=== PATIENT | male | born 1950 | race Caucasian/White ===

== ENCOUNTER 2021-06-21 14:08 | Inpatient (IN) | payer OTHER ==
[2021-06-21] VITALS (23 sets, daily range): BP systolic 132–183; BP diastolic 80–120
[~2021-06-21] VITALS: Ht 177.8 cm; Wt 99.8 kg
--- NOTE | 2021-06-21 14:19 | PCM.EKG ---
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
--- NOTE | 2021-06-21 14:23 | ER.PDOC ---
General Chief Complaint: Requesting Medical Care Stated Complaint: CP Time seen by MD: 14:31 Source: patient, family Exam Limitations: no limitations History of Present Illness Initial Comments 70-year-old male with previous history of only leukemia presents for evaluation of right-sided chest pressure. States the pressure feels as though something is sitting on his chest. He was exerting himself moving a house and cleaning it out when this chest pain occurred. He describes it as moderate in nature. There is no radiation. During the initial event he had diaphoresis that developed. Which is since resolved. He still has similar rated pain. He has never had a heart attack before. He denies any history of hypertension, no history of high blood pressure, high cholesterol or diabetes. No strong family history of cardiac disease. Exertion seems to make the pain worse. Rest seems to make it better. Timing/Duration: 1 hour Severity/Quality: moderate Radiation: no radiation Activities at Onset: activity/exertion Prior CP/Workup: No Prior Chest Pain, No Prior Cardiac Workup Nitro Today/Relief: No Nitro Taken Today Aspirin Today: No Aspirin Today Associated Symptoms: diaphoresis Prior symptoms/Treatment: No Similar symptoms previous Allergies: Coded Allergies: No Known Allergies (Unverified , 06/21/21) Past Medical History Medical History: other (Leukemia) Surgical History: no surgical history Family History Significant Family History: no pertinent family hx Social History Smoking: non-smoker Alcohol Use: rarely Drug Use: none Reviewed Nursing Reviewed: Vital Signs, Abn. Noted, Nursing Assessment Constitutional: see HPI EENTM: no symptoms reported Respiratory: see HPI Cardiovascular: see HPI Gastrointestinal: see HPI Genitourinary: no symptoms reported Musculoskeletal: no symptoms reported Skin: see HPI Psychiatric/Neurological: no symptoms reported Endocrine: no symptoms reported Hematologic/Lymphatic: no symptoms reported All Other Systems: Reviewed and Negative Physical Exam General Appearance: No Apparent Distress, WD/WN HEENT: PERRL/EOMI, Normal ENT Inspection Neck: Non-Tender, Full Range of Motion Respiratory: chest non-tender, lungs clear, normal breath sounds, no respiratory distress, no accessory muscle use Cardiovascular: Normal Peripheral Pulses, Regular Rate, Rhythm, No Edema Gastrointestinal: Normal Bowel Sounds, No Organomegaly Extremities: Normal Range of Motion, Non-Tender Neurologic/Psychiatric: 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 (06/21/21 14:15) Xr Chest 1v (06/21/21 14:15) Ekg-Routine (06/21/21 14:15) Aspirin (Aspirin) (06/21/21 14:30) Nitroglycerin (Nitrostat) (06/21/21 14:34) Aspirin (Aspirin) (06/21/21 14:34) Ekg-Routine (06/21/21 14:34) Nitroglycerin (Nitrostat) (06/21/21 14:34) Vital Signs Date Time Temp Pulse Resp B/P (MAP) Pulse Ox O2 Delivery O2 Flow Rate FiO2 06/21/21 14:38 98.3 70 18 183/120 (141) 99 Room Air 06/21/21 14:27 98.3 70 18 06/21/21 14:27 98.3 70 18 99 Administered Medications Medications (Trade) Dose Ordered Sig/Marielos Route PRN Reason Start Time Stop Time Status Last Admin Dose Admin Aspirin (Aspirin) 325 mg DAILY PRN PO CHEST PAIN 06/21/21 14:30 07/21/21 14:29 06/21/21 14:37 325 MG Nitroglycerin (Nitrostat) 0.4 mg STAT STAT SL 06/21/21 14:34 06/21/21 14:37 DC 06/21/21 14:38 0.4 MG Laboratory Tests Test 06/21/21 14:23 White Blood Count 7.5 10^3/uL (4.5-11.0) Red Blood Count 4.62 10^6/uL (4.50-5.90) Hemoglobin 15.1 g/dL (13.9-16.3) Hematocrit 43.2 % (37.0-53.0) Mean Corpuscular Volume 93.5 fL (78-100) Mean Corpuscular Hemoglobin 32.7 pg (26-34) Mean Corpuscular Hemoglobin Concent 35.0 g/dL (33-36.5) Red Cell Distribution Width 13.4 % (11.5-14.5) Platelet Count 186 10^3/uL (150-400) Mean Platelet Volume 8.8 fL (7.8-11.0) Neutrophils (%) (Auto) 78.0 % (41.0-85.0) Lymphocytes (%) (Auto) 14.8 % (24.0-44.0) L Monocytes (%) (Auto) 4.9 % (5.0-12.0) L Neutrophils # (Auto) 5.8 10^3/uL (1.8-7.7) Lymphocytes # (Auto) 1.11 10^3/uL1 (1.0-4.8) Monocytes # (Auto) 0.4 10^3/uL (0.3-0.8) Absolute Immature Granulocyte (auto 0.01 10^3 u/L (0-2) Absolute Eosinophils (auto) 0.1 10^3/uL (0.0-0.2) Immature Granulocytes % 0.10 % (0.00-0.50) Eosinophils % 1.7 % (0.0-5.0) Basophils % 0.5 % (0.0-0.2) H Basophils # 0.0 10^3/uL (0.0-0.1) Prothrombin Time 11.3 SEC (9.6-12.0) Prothrombin Time INR (Non-Therap) 1.1 Activated Partial Thromboplast Time 23.0 SEC (24.67-30.72) Sodium Level 139 mmol/L (132-145) Potassium Level 3.6 mmol/L (3.6-5.2) Chloride Level 106.0 mmol/L (96-109) Carbon Dioxide Level 25.1 mmol/L (20.0-32) Anion Gap 11.5 Blood Urea Nitrogen 14 mg/dL (7-18) Creatinine 1.25 mg/dL (0.59-1.40) Estimated GFR () 69.3 (>/=60) Est GFR (CKD-EPI)(Non-Afr Moroccan) 57.3 (>/=60) BUN/Creatinine Ratio 11.0 Glucose Level 128 mg/dL (70-110) H Calcium Level 9.0 mg/dL (8.4-10.5) Total Bilirubin 0.4 mg/dL (0.2-1.0) Aspartate Amino Transferase (AST) 31 U/L (0-35) Alanine Aminotransferase (ALT) 32 U/L (12-78) Alkaline Phosphatase 60 U/L (50-136) Troponin I 0.43 ng/mL (0.00-0.05) H Total Protein 7.5 g/dL (6.4-8.2) Albumin 4.1 g/dL (3.4-5.0) Globulin 3.4 Albumin/Globulin Ratio 1.205 EKG/XRAY/CT/US EKG: NSR, nonspecific ST T wave chg EKG Comments: NSR at 69, No ST Elevation, NO STEMI Consult/PCP Time Consult/PCP Called: 15:21 Consult/PCP: Gabriela Reason/Comments: NSTEMI/Chest pain. Recommends heparin drip, admission to hospital service. #2 EKG: NSR, nonspecific ST T wave chg ER DEPART Departure Time of Disposition: 15:23 Disposition: 09 ADMITTED INPATIENT Impression: Primary Impression: Chest pain Additional Impressions: Elevated troponin Acute coronary syndrome with high troponin Condition: Improved Referrals: PCP,UNKNOWN (PCP) PRIMARY CARE PROVIDER Duration or Time Spent with Pa: 20 Critical Care Note Total Time (mins): 35 Comments Chest pain, concerning initially for possible acute infarction. Multiple serial EKGs obtained. Consulted with cardiology. Initiated patient on heparin drip. Admitted for ACS. Problem Qualifiers Primary Impression: Chest pain Chest pain type: other chest pain Qualified Codes: R07.89 - Other chest pain MARCELA FIELD DO Jun 21, 2021 14:23
[2021-06-21] MEDS ORDERED: ASPIRIN PO PRN (14:30)
[2021-06-21 14:32] LABS: BASOPHIL % 0.5 % (0.0-0.2); EOSINOPHIL # 0.1 10^3/uL (0.0-0.2); EOSINOPHIL % 1.7 % (0.0-5.0); LYMPHOCYTES # 1.11 10^3/uL1 (1.0-4.8); LYMPHOCYTES % 14.8 % (24.0-44.0); MEAN CORP HGB 32.7 pg (26-34); MONOCYTES # 0.4 10^3/uL (0.3-0.8); MONOCYTES % 4.9 % (5.0-12.0); NEUTROPHIL # 5.8 10^3/uL (1.8-7.7); PLATELET COUNT 186 10^3/uL (150-400); RED CELL DISTRIBUTION WIDTH 13.4 % (11.5-14.5)
[2021-06-21] MEDS ORDERED: ASPIRIN ONE (14:34)
[2021-06-21] MEDS ORDERED: NITROSTAT SL ONE (14:34)
[2021-06-21] MEDS ORDERED: NITROSTAT SL STA (14:34)
--- NOTE | 2021-06-21 14:37 | DIREP ---
PROCEDURE:CHEST 1 VIEW COMPARISON:None. INDICATIONS:Chest pain FINDINGS: LUNGS/PLEURA:Or active projection. No infiltrate or pleural effusion. CARDIAC:Normal cardiac silhouette and normal pulmonary vascularity. Mildly tortuous aorta. MEDIASTINUM:Normal BONES:Thoracic spondylosis and bilateral shoulder arthrosis. OTHER:No additional findings. CONCLUSION:No acute cardiopulmonary process. Dictated by: Deepika Biggs MD on 06/21/2021 at 02:34 PM
--- NOTE | 2021-06-21 14:44 | PCM.EKG ---
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
[2021-06-21 15:08] LABS: CARBON DIOXIDE 25.1 mmol/L (20.0-32)
[2021-06-21] MEDS ORDERED: HEPARIN-D5W 20,000 UNIT/500 ML 500 ML IV SCH (15:30)
[2021-06-21] MEDS ORDERED: HEPARIN-D5W 20,000 UNIT/500 ML 500 ML IV ONE (15:33)
[2021-06-21] MEDS ORDERED: HEPARIN ONE ×2 (15:33→22:49)
[2021-06-21] MEDS ORDERED: HEPARIN 500 UNIT/5 ML (100/ML) IV STA (15:44)
--- NOTE | 2021-06-21 17:00 | NUR ---
Arrival Patient arrived on unit via stretcher to ICU 1. Report received from Rehan RN, Assumed care of pt. Pt placed on bedside monitor. Vital signs WNL. Oriented pt to room. Offered pt fluids and snacks. Educated pt on use of call light, pt verbalized understanding. Will continue to monitor. Call light within reach.
--- NOTE | 2021-06-21 17:20 | NUR ---
Dr. Bentley Hagan at bedside. New orders received for troponin q4hr x2, first one at 1800, order to place midline, and continue folic acid and vitamin d from home medications. RBVO.
[2021-06-21] MEDS ORDERED: TOPROL XL PO SCH (17:30)
[2021-06-21] MEDS ORDERED: PLAVIX PO SCH (17:30)
--- NOTE | 2021-06-21 17:42 | PCM.HP ---
HISTORY & PHYSICAL HISTORY & PHYSICAL DATE OF ADMISSION: June 21, 2021 CHIEF COMPLAINT: Chest pressure For last 4 to 5 hours HISTORY OF PRESENT ILLNESS: XT 10-year-old male with previous history of rheumatoid arthritis large granulocyte lymphocytic leukemia denies any history of hypertension diabetes mellitus or hypercholesterolemia was moving his parents house furniture's and suddenly developed mid chest pressure-like symptoms denies any associated nausea or vomiting dizziness lightheadedness or palpitation as the symptom was disturbing he decided to come to the ER in the ER patient was found to have elevated troponin and ST depression.According to the ER physician has contacted Dr. Talat ALLEN and recommended ICU admission with heparin drip and patient was admitted for further management patient claims that he is still have chest discomfort and no cough wheezing or shortness of breath no trauma to the chest no wheezing no frequent heartburn ALLERGIES: No known drug allergies CURRENT MEDICATIONS: Not available at this time PAST MEDICAL HISTORY: Rheumatoid arthritis large granulocyte Lymphocytic leukemia Past surgical history is significant for prostate cancer surgery appendectomy and skin cancer removal SOCIAL HISTORY: Stop smoking more than 10 years prior to this admission has history of 20 pack years smoking no alcohol intake,Living with his spouse FAMILY HISTORY: No history of first-degree relative with premature heart disease REVIEW OF SYSTEMS: No change in weight tolerating p.o. intake well chest pressure still present no fever chills or rigors no cough or wheezing occasional heartburn regular bowel movement no melena or hematochezia no dysuria hematuria or increased frequency of urination no dependent edema All systems reviewed and negative except mentioned above VITAL SIGNS: Vital Signs Date Time Temp Pulse Resp B/P (MAP) Pulse Ox O2 Delivery O2 Flow Rate FiO2 06/21/21 15:37 98.3 72 18 140/95 (110) 96 Room Air 06/21/21 14:38 98.3 70 18 183/120 (141) 99 Room Air 06/21/21 14:27 98.3 70 18 06/21/21 14:27 98.3 70 18 99 PHYSICAL EXAMINATION: General: Patient is awake alert oriented not in distress HEENT: Anicteric sclera pupil react light mucous membrane is moist neck supple no JVD no carotid bruit no cervical lymphadenopathy no thyromegaly Lungs air entry symmetrical clear to auscultation bilaterally Heart S1-S2 heard no murmur or gallop appreciated,Clinically not enlarged Abdomen old surgical scar present subumbilical region slightly obese nontender bowel sounds present soft no guarding no rigidity Extremities no edema no calf tenderness dorsalis pedis pulses present bilaterally 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 SPECIALIST alert oriented no focal deficit noted,Normal mood and judgment LABORATORY DATA: Laboratory Tests Test 06/21/21 14:23 White Blood Count 7.5 10^3/uL (4.5-11.0) Red Blood Count 4.62 10^6/uL (4.50-5.90) Hemoglobin 15.1 g/dL (13.9-16.3) Hematocrit 43.2 % (37.0-53.0) Mean Corpuscular Volume 93.5 fL (78-100) Mean Corpuscular Hemoglobin 32.7 pg (26-34) Mean Corpuscular Hemoglobin Concent 35.0 g/dL (33-36.5) Red Cell Distribution Width 13.4 % (11.5-14.5) Platelet Count 186 10^3/uL (150-400) Mean Platelet Volume 8.8 fL (7.8-11.0) Neutrophils (%) (Auto) 78.0 % (41.0-85.0) Lymphocytes (%) (Auto) 14.8 % (24.0-44.0) Monocytes (%) (Auto) 4.9 % (5.0-12.0) Neutrophils # (Auto) 5.8 10^3/uL (1.8-7.7) Lymphocytes # (Auto) 1.11 10^3/uL1 (1.0-4.8) Monocytes # (Auto) 0.4 10^3/uL (0.3-0.8) Absolute Immature Granulocyte (auto 0.01 10^3 u/L (0-2) Absolute Eosinophils (auto) 0.1 10^3/uL (0.0-0.2) Immature Granulocytes % 0.10 % (0.00-0.50) Eosinophils % 1.7 % (0.0-5.0) Basophils % 0.5 % (0.0-0.2) Basophils # 0.0 10^3/uL (0.0-0.1) Prothrombin Time 11.3 SEC (9.6-12.0) Prothrombin Time INR (Non-Therap) 1.1 Activated Partial Thromboplast Time 23.0 SEC (24.67-30.72) Sodium Level 139 mmol/L (132-145) Potassium Level 3.6 mmol/L (3.6-5.2) Chloride Level 106.0 mmol/L (96-109) Carbon Dioxide Level 25.1 mmol/L (20.0-32) Anion Gap 11.5 Blood Urea Nitrogen 14 mg/dL (7-18) Creatinine 1.25 mg/dL (0.59-1.40) Estimated GFR () 69.3 (>/=60) Est GFR (CKD-EPI)(Non-Afr Bahraini) 57.3 (>/=60) BUN/Creatinine Ratio 11.0 Glucose Level 128 mg/dL (70-110) Calcium Level 9.0 mg/dL (8.4-10.5) Total Bilirubin 0.4 mg/dL (0.2-1.0) Aspartate Amino Transf (AST/SGOT) 31 U/L (0-35) Alanine Aminotransferase (ALT/SGPT) 32 U/L (12-78) Alkaline Phosphatase 60 U/L (50-136) Troponin I 0.43 ng/mL (0.00-0.05) Total Protein 7.5 g/dL (6.4-8.2) Albumin 4.1 g/dL (3.4-5.0) Globulin 3.4 Albumin/Globulin Ratio 1.205 IMAGING: SUMMARY: 70-year-old male with previous history of rheumatoid arthritis presented to the ER with chest discomfort found to have abnormal EKG and elevated troponin patient was started on aspirin and heparin drip as per import/export analyst recommendation and admitted to ICU ASSESSMENT/PLAN: 1. Acute non-STEMI 2. History of rheumatoid arthritis 3. History of prostate cancer 4. History of Leukemia Plan: We will add Plavix and low-dose beta-alissa and statins await import/export analyst recommendation reevaluate the patient in a.m. SHAZIA CLIFFORD MD Jun 21, 2021 17:42
--- NOTE | 2021-06-21 20:45 | NUR ---
HEPARIN DRIP HEPARIN DRIP INCREASED BY 100 UNITS TO A FLOW RATE OF 1100 UNITS DUE TO PTT OF 43.8.
[2021-06-21] MEDS ORDERED: CRESTOR PO SCH (21:00)
--- NOTE | 2021-06-21 22:45 | NUR ---
OFF UNIT SURGICAL CHECKLIST AND SBAR REPORT GIVEN TO CLINTON LUTHER RN FROM [facility]MET[facility]MI[facility]. PT TRANSFERRED TO [facility] BED. PT WHEELED OFF OF UNIT BY CLINTON LUTHER RN FROM [facility]MET[facility]. CARE OF PT RELINQUISHED AT THIS TIME.
[2021-06-21] MEDS ORDERED: VERSED ONE (22:50)
[2021-06-21] MEDS ORDERED: SUBLIMAZE ONE (22:50)
[2021-06-21] MEDS ORDERED: XYLOCAINE ONE (22:50)
[2021-06-22] VITALS (54 sets, daily range): BP systolic 62–163; BP diastolic 24–102
[2021-06-22] MEDS ORDERED: ATIVAN ONE (01:03)
[2021-06-22] MEDS ORDERED: PLAVIX ONE (01:15)
[2021-06-22] MEDS ORDERED: ASPIRIN ONE (01:15)
[2021-06-22] MEDS ORDERED: APRESOLINE ONE (01:20)
[2021-06-22] MEDS ORDERED: ANCEF ONE (01:26)
[2021-06-22] MEDS ORDERED: SOLU-MEDROL ONE (01:32)
[2021-06-22] MEDS ORDERED: BENADRYL ONE (01:32)
--- NOTE | 2021-06-22 01:50 | NUR ---
ARRIVAL BACK ON UNIT PT ARRIVED BACK ON UNIT VIA STRETCHER FROM FORGING DIE SINKER ACCOMPANIED BY Khoi MEYER RN. REPORT RECEIVED FROM Khoi MEYER RN. CARE OF PT RESUMED.
[2021-06-22] MEDS ORDERED: NS 1000ML 1,000 ML ONE (02:22)
[2021-06-22] MEDS ORDERED: NS 1000ML 1,000 ML IV ONE (02:30)
[2021-06-22] MEDS ORDERED: NORCO 5MG PO PRN (02:30)
[2021-06-22] MEDS ORDERED: ZOFRAN IV PRN (02:30)
--- NOTE | 2021-06-22 02:55 | CNH ---
DATE OF CONSULTATION: 06/22/2021 DICTATOR NAME: ABBY ESTRADA DO REASON FOR CONSULTATION: Acute non-ST elevation myocardial infarction. HISTORY OF PRESENT ILLNESS: This is a 70-year-old male who presented to the Emergency Room with sudden onset of chest pain, which started yesterday when he was moving furniture at his parents' house. He describes chest pressure in the substernal region with radiation to the left upper extremity. He denies any other symptoms. Upon presentation to the ED, EKG shows normal sinus rhythm with ST depressions in the lateral leads suggestive of myocardial ischemia. He was noted to have spill troponin and so a diagnosis of acute non-ST elevation myocardial infarction was made. A consultation was placed to cardiology service for evaluation. PAST MEDICAL HISTORY: Significant for, 1. Rheumatoid arthritis. 2. Lymphocytic leukemia. ALLERGIES: He has no known drug allergies. MEDICATIONS: He takes at home, he does not take any medications. PAST SURGICAL HISTORY: 1. Prostate cancer surgery. 2. Appendectomy. FAMILY HISTORY: He denies any history of premature coronary artery disease or sudden cardiac . SOCIAL HISTORY: He has a remote history of tobacco abuse. He denies alcohol use. He denies illicit drug use. REVIEW OF SYSTEMS: As per HPI and as per previous records. All systems are reviewed and negative for interval change. PHYSICAL EXAMINATION: VITAL SIGNS: Blood pressure is 140/95, respiratory rate is 22, pulse is 62, pulse oximetry 97% on room air. GENERAL: He is in no apparent distress, alert and oriented x3. HEENT: Normocephalic, atraumatic. Extraocular muscles intact. Pupils equally round, reactive to light and accommodation. CARDIAC: S1, S2. No gallops, murmurs, rubs, or clicks. LUNGS: Clear to auscultation bilaterally. No wheezing, rhonchi or rales. ABDOMEN: Soft, nontender, nondistended. Positive bowel sounds in all four quadrants. EXTREMITIES: No cyanosis, no clubbing, no edema, +2 pedal pulses palpable bilaterally. NEUROLOGIC: No neurological deficits. Sensation is intact. IMPRESSION: 1. Acute non-ST elevation myocardial infarction. 2. History of rheumatoid arthritis. 3. Lymphocytic leukemia. RECOMMENDATIONS: This is a 70-year-old male who presented to the Emergency Room with sudden onset of chest pain, which he describes as a pressure-like sensation in his substernal region. His EKG shows ST depressions in the lateral and high lateral leads suggestive of myocardial ischemia. He was noted to have spilled troponins with a maximum troponin spill of 1.53. A diagnosis of acute non-ST elevation myocardial infarction, has been made. He will be taken to the cardiac catheterization suite for urgent left heart catheterization to rule out obstructive CAD. A 2D echo will be obtained this admission to evaluate his left ventricular ejection fraction and structural integrity of his heart. Informed consents have been obtained. The risks versus benefits of the procedure have been explained to him in great detail. He verbalized understanding and is agreeable with the plan of care. He is currently on heparin drip. Loading dose of aspirin has been given to him. Further recommendations will be made based on the findings from left heart catheterization. Puma BOONE D.O. DR: MALU TID: [id number] RECEIPT: [id number]
--- NOTE | 2021-06-22 03:42 | [facility] ---
DATE OF SERVICE: 06/22/2021 DICTATOR NAME: ABBY ESTRADADO CARDIAC CATHETERIZATION REPORT INDICATIONS: Acute non-ST elevation myocardial infarction. This is a 70-year-old male who presented to the Emergency Room with sudden onset of chest pain in the substernal region with radiation to the left upper extremity. Upon presentation to the ED, he was noted to have spilled troponins with a maximum troponin spill of 1.53. EKG shows ST depressions in the lateral as well as the high lateral leads. A diagnosis of acute non-ST elevation myocardial infarction was made. The patient was then taken to the cardiac catheterization suite for urgent left heart catheterization after informed consents were obtained. PROCEDURES PERFORMED: 1. Severe stenosis (95%) of the mid left anterior descending artery, status post successful percutaneous coronary intervention with a Resolute [place] 3.5 x 22 mm drug-eluting stent. 2. Percutaneous transluminal coronary angioplasty of the left anterior descending artery with a Euphora 2.0 x 12 mm compliant balloon. 3. Selective coronary angiography. 4. Left ventriculography. 5. Hemostasis established using a 6-Burkinan MynxGrip. DESCRIPTION OF PROCEDURE: Access was obtained using a 4-Burkinan micropuncture kit to cannulate the right common femoral artery. The 4-Burkinan sheath was then upsized to a 6-Burkinan sheath. Angiography of the right external iliac artery as well as the right common femoral artery shows an extremely tortuous right external iliac artery. I was able to advance a Glidewire through the tortuosity and advanced a diagnostic Lisseth left catheter to the left main. The left main was noted to be angiographically normal. It bifurcates into left anterior descending artery and the left circumflex artery. The left anterior descending artery is noted to have a mid segment 95% stenosis. It runs in the interventricular groove, wrapping around the apex to form a type 3 LAD. There is a focal 50% lesion in the distal LAD. The distal LAD appears to be a 1.5 mm vessel. The LAD gives rise to 2 diagonal branches that are noted to have mild luminal irregularities. The left circumflex artery is noted to be dominant with mild luminal irregularities. It continues as the left posterolateral branch supplying the posterior wall as well as the inferior wall and the lateral wall. It gives off 4 obtuse marginal branches that are noted to all have mild luminal irregularities. The Lisseth left catheter was then exchanged for a Lisseth right catheter, which was used to cross the aortic valve into the left ventricle. Left ventriculography was performed. LVEF was noted to be 60%. LVEDP was noted to be 11. Upon pullback of the Lisseth right catheter, there was no gradient across the aortic valve. The Lisseth right catheter was then used to engage the RCA. RCA angiography showed a nondominant RCA with a subtotal occlusion in the mid segment. The RCA is a small caliber vessel. I then turned my attention to the left anterior descending artery. Using an EBU 4 guide, the left main was successfully engaged. A Runthrough wire was introduced into the LAD crossing the lesion. The lesion in the mid LAD was then debulked using a Euphora 2.0 x 12 mm compliant balloon. Following multiple balloon angioplasties, the lesion in the mid LAD was successfully debulked. It was then treated with a Resolute [place] 3.5 x 22 mm drug-eluting stent. The stent was then postdilated using a Euphora 3.75 x 20 mm noncompliant balloon. Following balloon angioplasty, the stent was noted to be well opposed to the wall of the vessel with 0% residual stenosis. GREGG 3 flow was maintained in the LAD. The wire and the guide were subsequently removed. I then elected to assess the lesion in the right coronary artery. Using a Lisseth right guide, the RCA was successfully engaged. A Runthrough wire was introduced into the RCA to cross the lesion in the mid RCA. It became evident that the lesion in the mid RCA is a chronically totally occluded lesion as I was unable to cross the lesion with a wire. The tortuosity in the right external iliac artery also proved difficult. A long 25 cm sheath was introduced. Multiple attempts to use a multipurpose guide catheter as well as an Amplatz right catheter to engage the RCA and to advance a wire through the lesion proved abortive due to the chronicity of the lesion. Given the small size of the vessel, which appears to be a 1.5 mm vessel and the chronicity of the lesion in the mid RCA, against the background of a nondominant vessel, I elected to abort intervention in the mid RCA. The wire and the guide catheter was taken out and hemostasis was established using a 6-Burkinan MynxGrip. 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 There were no complications. IMPRESSION: 1. Severe stenosis (95%) of the mid left anterior descending artery, status post successful percutaneous coronary intervention with a drug-eluting stent. 2. Percutaneous transluminal coronary angioplasty of the left anterior descending artery. 3. Selective coronary angiography. 4. Left ventriculography. 5. Left ventricular ejection fraction of 60%. 6. Left ventricular end-diastolic pressure of 11. 7. Hemostasis established using a 6-Burkinan MynxGrip. RECOMMENDATIONS: The patient is to remain on dual antiplatelet therapy as well as statin therapy. Lifestyle modification changes have been strongly advised. A 2D echo will be obtained to reevaluate his left ventricular ejection fraction. Puma BOONE D.O. DR: MALU BENAVIDES: [id number] RECEIPT: [id number]
[2021-06-22 04:57] LABS: BASOPHIL % 0.2 % (0.0-0.2); EOSINOPHIL % 0.1 % (0.0-5.0); LYMPHOCYTES # 0.42 10^3/uL1 (1.0-4.8); LYMPHOCYTES % 4.5 % (24.0-44.0); MEAN CORP HGB 33.1 pg (26-34); MONOCYTES # 0.1 10^3/uL (0.3-0.8); NEUTROPHIL # 8.7 10^3/uL (1.8-7.7); NEUTROPHILS % 94.2 % (41.0-85.0); PLATELET COUNT 178 10^3/uL (150-400); RED CELL DISTRIBUTION WIDTH 13.5 % (11.5-14.5)
[2021-06-22 05:09] LABS: CALCIUM 8.3 mg/dL (8.4-10.5); CARBON DIOXIDE 20.5 mmol/L (20.0-32)
[2021-06-22 05:55] LABS: BAND NEUTROPHILS 1 % (2-6); LYMPHOCYTE 4 % (25-36); MONOCYTE 1 % (3-9); SEGMENTED NEUTROPHILS 94 % (31-76)
[2021-06-22] MEDS ORDERED: MELO15TA6 PO (07:26)
[2021-06-22] MEDS ORDERED: FOLI20CA PO (07:26)
--- NOTE | 2021-06-22 08:29 | NUR ---
HORTICULTURE INSTRUCTOR UNABLE TO COMPLETE ECHO DUE TO PATIENT BEING SO RESTLESS, AND NOT BEING ABLE TO SIT STILL.
[2021-06-22] MEDS: ASPIRIN EC PO SCH (08:49)
[2021-06-22] MEDS: PLAVIX PO SCH (08:49)
[2021-06-22] MEDS ORDERED: EFFER-K 10 MEQ TABLET EFF PO SCH (15:00)
--- NOTE | 2021-06-22 19:13 | PRM.PN ---
PROGRESS NOTE SUBJECTIVE Denies any chest pain shortness of breath tolerating p.o. intake well had bowel movement right groin has minimal pain no swelling no urinary symptoms 70-year-old male with previous history of rheumatoid arthritis prostate cancer and leukemia was apparently in his usual health until The day of admission he was moving heavy furniture's and developed chest pain therefore he came to the ER and found to have elevated troponin patient was admitted and subsequently underwent coronary angiogram that showed left anterior descending artery stenosis underwent PTCA and drug-eluting stent placement patient symptoms has improved and overnight no event Case was discussed with steersman and recommended overnight observation and possible discharge in a.m. if remains stable OBJECTIVE Vital Signs Date Time Temp Pulse Resp B/P (MAP) Pulse Ox O2 Delivery O2 Flow Rate FiO2 06/22/21 15:00 84 21 109/63 (78) 94 06/22/21 14:55 83 22 94 06/22/21 14:45 70 20 118/62 (80) 92 06/22/21 14:40 69 20 93 06/22/21 14:30 69 20 102/59 (73) 92 06/22/21 14:25 72 20 94 06/22/21 14:15 73 21 100/64 (76) 93 06/22/21 14:10 74 20 92 06/22/21 14:00 77 22 132/64 (86) 94 06/22/21 13:55 83 17 110/68 (82) 95 06/22/21 13:45 82 24 98/47 (64) 95 06/22/21 13:40 74 20 94 06/22/21 13:30 76 17 114/73 (87) 97 06/22/21 13:25 82 28 96 06/22/21 13:20 84 25 96 06/22/21 13:15 84 27 114/72 (86) 97 06/22/21 13:05 85 25 95 06/22/21 13:00 79 22 101/74 (83) 94 06/22/21 12:50 81 23 95 06/22/21 12:45 87 27 109/68 (82) 94 06/22/21 12:35 88 21 95 06/22/21 12:30 84 21 101/66 (78) 97 06/22/21 12:20 83 25 96 06/22/21 12:15 86 14 117/72 (87) 96 06/22/21 12:10 82 18 95 06/22/21 12:06 82 23 114/75 (88) 96 06/22/21 11:30 79 20 111/67 (82) 92 06/22/21 11:25 77 21 93 06/22/21 11:15 97 25 120/59 (79) 92 06/22/21 11:13 Room Air 06/22/21 11:10 78 16 93 06/22/21 11:00 80 20 111/73 (86) 93 06/22/21 10:55 77 21 95 06/22/21 10:50 83 26 95 06/22/21 10:45 75 21 108/69 (82) 95 06/22/21 10:35 87 20 93 06/22/21 10:30 86 22 120/67 (84) 96 06/22/21 10:20 77 20 94 06/22/21 10:15 81 22 115/73 (87) 96 06/22/21 10:05 87 22 95 06/22/21 10:00 88 24 134/80 (98) 95 06/22/21 09:55 89 23 95 06/22/21 09:46 87 25 144/77 (99) 96 06/22/21 09:40 101 31 97 06/22/21 09:30 87 23 124/79 (94) 95 06/22/21 09:25 86 13 96 06/22/21 09:15 84 24 112/67 (82) 96 06/22/21 09:10 93 17 92 06/22/21 09:05 81 22 94 06/22/21 09:00 91 25 109/57 (74) 95 06/22/21 08:50 83 24 93 06/22/21 08:45 84 25 136/49 (78) 95 06/22/21 08:35 84 20 97 06/22/21 08:30 71 21 139/72 (94) 95 06/22/21 08:20 73 24 95 06/22/21 08:15 63 20 112/59 (76) 94 06/22/21 08:05 62 19 94 06/22/21 08:00 64 20 105/60 (75) 93 06/22/21 07:45 67 20 93/63 (73) 93 06/22/21 07:31 Room Air 06/22/21 07:30 62 12 105/65 (78) 95 06/22/21 07:15 62 100/63 (75) 95 06/22/21 07:00 70 21 104/65 (78) 91 General: Awake alert oriented not in distress HEENT: Anicteric sclera pupil react light mucous membrane is moist neck supple no JVD no carotid bruit Lungs air entry symmetrical ,No rales or rhonchi no wheezes heard Heart: S1-S2 heard no murmur gallop appreciated ,Clinically not enlarged Abdomen: Soft no guarding no rigidity nontender bowel sounds present Extremities no edema no calf tenderness right groin arterial access site appear normal no swelling no tenderness no bruit noted CLINICAL EXERCISE PHYSIOLOGIST: Nonfocal examination, awake alert oriented normal mood and judgment Laboratory Tests Test 06/21/21 14:23 06/21/21 20:01 06/22/21 04:38 06/22/21 05:03 White Blood Count 7.5 10^3/uL (4.5-11.0) 9.2 10^3/uL (4.5-11.0) Red Blood Count 4.62 10^6/uL (4.50-5.90) 4.38 10^6/uL (4.50-5.90) Hemoglobin 15.1 g/dL (13.9-16.3) 14.5 g/dL (13.9-16.3) Hematocrit 43.2 % (37.0-53.0) 40.6 % (37.0-53.0) Mean Corpuscular Volume 93.5 fL (78-100) 92.7 fL (78-100) Mean Corpuscular Hemoglobin 32.7 pg (26-34) 33.1 pg (26-34) Mean Corpuscular Hemoglobin Concent 35.0 g/dL (33-36.5) 35.7 g/dL (33-36.5) Red Cell Distribution Width 13.4 % (11.5-14.5) 13.5 % (11.5-14.5) Platelet Count 186 10^3/uL (150-400) 178 10^3/uL (150-400) Mean Platelet Volume 8.8 fL (7.8-11.0) 8.6 fL (7.8-11.0) Neutrophils (%) (Auto) 78.0 % (41.0-85.0) 94.2 % (41.0-85.0) Lymphocytes (%) (Auto) 14.8 % (24.0-44.0) 4.5 % (24.0-44.0) Monocytes (%) (Auto) 4.9 % (5.0-12.0) 1.0 % (5.0-12.0) Neutrophils # (Auto) 5.8 10^3/uL (1.8-7.7) 8.7 10^3/uL (1.8-7.7) Lymphocytes # (Auto) 1.11 10^3/uL1 (1.0-4.8) 0.42 10^3/uL1 (1.0-4.8) Monocytes # (Auto) 0.4 10^3/uL (0.3-0.8) 0.1 10^3/uL (0.3-0.8) Absolute Immature Granulocyte (auto 0.01 10^3 u/L (0-2) 0.01 10^3 u/L (0-2) Absolute Eosinophils (auto) 0.1 10^3/uL (0.0-0.2) 0.0 10^3/uL (0.0-0.2) Immature Granulocytes % 0.10 % (0.00-0.50) 0.10 % (0.00-0.50) Eosinophils % 1.7 % (0.0-5.0) 0.1 % (0.0-5.0) Basophils % 0.5 % (0.0-0.2) 0.2 % (0.0-0.2) Basophils # 0.0 10^3/uL (0.0-0.1) 0.0 10^3/uL (0.0-0.1) Prothrombin Time 11.3 SEC (9.6-12.0) Prothrombin Time INR (Non-Therap) 1.1 Activated Partial Thromboplast Time 23.0 SEC (24.67-30.72) 43.8 SEC (24.67-30.72) Sodium Level 139 mmol/L (132-145) 142 mmol/L (132-145) Potassium Level 3.6 mmol/L (3.6-5.2) 3.5 mmol/L (3.6-5.2) Chloride Level 106.0 mmol/L (96-109) 107.0 mmol/L (96-109) Carbon Dioxide Level 25.1 mmol/L (20.0-32) 20.5 mmol/L (20.0-32) Anion Gap 11.5 18.0 Blood Urea Nitrogen 14 mg/dL (7-18) 11 mg/dL (7-18) Creatinine 1.25 mg/dL (0.59-1.40) 1.09 mg/dL (0.59-1.40) Estimated GFR () 69.3 (>/=60) 81.2 (>/=60) Est GFR (CKD-EPI)(Non-Afr Malagasy) 57.3 (>/=60) 67.1 (>/=60) BUN/Creatinine Ratio 11.0 10.0 Glucose Level 128 mg/dL (70-110) 130 mg/dL (70-110) Calcium Level 9.0 mg/dL (8.4-10.5) 8.3 mg/dL (8.4-10.5) Total Bilirubin 0.4 mg/dL (0.2-1.0) 0.7 mg/dL (0.2-1.0) Aspartate Amino Transf (AST/SGOT) 31 U/L (0-35) 41 U/L (0-35) Alanine Aminotransferase (ALT/SGPT) 32 U/L (12-78) 25 U/L (12-78) Alkaline Phosphatase 60 U/L (50-136) 56 U/L (50-136) Troponin I 0.43 ng/mL (0.00-0.05) 1.53 ng/mL (0.00-0.05) Total Protein 7.5 g/dL (6.4-8.2) 6.8 g/dL (6.4-8.2) Albumin 4.1 g/dL (3.4-5.0) 3.7 g/dL (3.4-5.0) Globulin 3.4 3.1 Albumin/Globulin Ratio 1.205 1.193 Triglycerides Level 75 mg/dL (20-200) Cholesterol Level 177 mg/dL (120-240) LDL Cholesterol, Calculated 115.0 VLDL Cholesterol, Calculated 15.0 HDL Cholesterol 47 mg/dL (32-96) Cholesterol Ratio (LDL/HDL) 2.4 Cholesterol/HDL Ratio 3.997414 Differential Total Cells Counted 100 #CELLS Segmented Neutrophils 94 % (31-76) Band Neutrophils 1 % (2-6) Lymphocytes 4 % (25-36) Monocytes 1 % (3-9) Platelet Estimate ADEQUATE Platelet Morphology NORMAL Blood Morphology Comment NORMAL MORPHOLOGY ASSESSMENT Acute non-ST elevation myocardial infarction Left anterior descending artery critical stenosis s/p PTCA and drug-eluting stent placement History of rheumatoid arthritis History of prostate cancer History of leukemia Preserved ejection fraction as per ventriculogram about 60% PLAN Patient was started on dual antiplatelet therapyPatient was started on dual antiplatelet therapy,High intensity statin therapy, beta-alissa Blood pressure is in the borderline we will observe overnight if remains stable will consider discharging patient home in a.m. and if blood pressure permits we will start the patient on low-dose ANUM or ARB Ventriculogram showed ejection fraction of 60% SHAZIA CLIFFORD MD Jun 22, 2021 19:13
[2021-06-22] MEDS ORDERED: LIPITOR PO SCH (21:00)
--- NOTE | 2021-06-22 21:13 | PRM.PN ---
Subjective Subjective Date: Jun 22, 2021 Time: 21:06 Subjective Patient resting comfortably No chest pain, sob or palpitations Review of Systems Constitutional: No: Fever, Chills, Sweats, Weakness, Malaise, Other Eyes: No: Pain, Vision change, Conjunctivae inflammation, Eyelid inflammation, Other, Redness ENT: No: Ear pain, Ear discharge, Nose pain, Nose discharge, Nose congestion, Mouth pain, Mouth swelling, Throat pain, Throat swelling, Other Respiratory: No: Cough, Dry, Shortness of breath, SOB with excertion, Wheezing, Hemoptysis, Pleuritic Pain, Sputum, Wheezing, Other Cardiovascular: No: Chest Pain, Palpitations, Orthopnea, Paroxysmal Noc. Dyspnea, Edema, Lt Headedness, Other Gastrointestinal: No: Nausea, Vomiting, Abdominal Pain, Diarrhea, Constipation, Melena, Hematochezia, Other Musculoskeletal: No: other, neck pain, shoulder pain, arm pain, back pain, hand pain, leg pain, foot pain Neurological: No: Weakness, Numbness, Incoordination, Change in speech, Confusion, Seizures, Other Allergies: Coded Allergies: No Known Allergies (Unverified , 06/21/21) Scheduled Folic Acid (Folic Acid), 1 CAP PO QD, (Reported) Meloxicam (Mobic), 1 TAB PO DAILY, (Reported) Objective Vitals and I/O Vital Sign - Last 24 Hours 06/21/21 06/21/21 06/21/21 06/21/21 21:15 21:32 21:45 22:00 Pulse 71 73 62 61 Resp 22 19 22 16 B/P (MAP) 146/99 (115) 154/115 (128) 140/95 (110) 139/99 (112) Pulse Ox 97 96 97 06/21/21 06/21/21 06/21/21 06/21/21 22:15 22:30 22:45 23:00 Pulse 61 63 60 59 Resp 15 18 15 14 B/P (MAP) 151/102 (118) 145/91 (109) 145/98 (114) 153/95 (114) Pulse Ox 96 06/22/21 06/22/21 06/22/21 06/22/21 01:50 02:14 02:15 02:20 Pulse 88 86 84 Resp 33 29 22 B/P (MAP) 130/96 (107) 145/85 (105) Pulse Ox 95 96 98 O2 Delivery Room Air 06/22/21 06/22/21 06/22/21 06/22/21 02:31 02:35 02:37 02:45 Pulse 77 79 80 81 Resp 26 91 22 17 B/P (MAP) 163/82 (109) 62/24 (37) Pulse Ox 97 96 97 98 06/22/21 06/22/21 06/22/21 06/22/21 02:56 03:06 03:31 03:45 Pulse 86 78 76 74 Resp 14 18 22 15 B/P (MAP) 137/102 (114) 152/87 (108) 144/85 (104) 125/83 (97) Pulse Ox 96 96 95 93 06/22/21 06/22/21 06/22/21 06/22/21 04:00 04:15 04:30 04:45 Temp 98.4 Pulse 70 75 71 72 Resp 20 23 22 B/P (MAP) 124/46 (72) 108/69 (82) 103/75 (84) 111/72 (85) Pulse Ox 92 93 94 93 06/22/21 06/22/21 06/22/21 06/22/21 05:14 05:30 05:45 05:57 Pulse 68 77 70 Resp 21 20 18 B/P (MAP) 115/73 (87) 112/75 (87) 116/75 (89) Pulse Ox 97 95 95 O2 Delivery Room Air 06/22/21 06/22/21 06/22/21 06/22/21 06:00 06:15 06:30 06:45 Pulse 68 66 72 66 Resp 17 18 13 15 B/P (MAP) 113/74 (87) 125/72 (89) 118/74 (89) 97/63 (74) Pulse Ox 94 94 96 95 06/22/21 06/22/21 06/22/21 06/22/21 07:00 07:15 07:30 07:31 Pulse 70 62 62 Resp 21 12 B/P (MAP) 104/65 (78) 100/63 (75) 105/65 (78) Pulse Ox 91 95 95 O2 Delivery Room Air 06/22/21 06/22/21 06/22/21 06/22/21 07:45 08:00 08:05 08:15 Pulse 67 64 62 63 Resp 20 20 19 20 B/P (MAP) 93/63 (73) 105/60 (75) 112/59 (76) Pulse Ox 93 93 94 94 06/22/21 06/22/21 06/22/21 06/22/21 08:20 08:30 08:35 08:45 Pulse 73 71 84 84 Resp 24 21 20 25 B/P (MAP) 139/72 (94) 136/49 (78) Pulse Ox 95 95 97 95 06/22/21 06/22/21 06/22/21 06/22/21 08:50 09:00 09:05 09:10 Pulse 83 91 81 93 Resp 22 17 B/P (MAP) 109/57 (74) Pulse Ox 93 95 94 92 06/22/21 06/22/21 06/22/21 06/22/21 09:15 09:25 09:30 09:40 Pulse 84 86 87 101 Resp 24 13 23 31 B/P (MAP) 112/67 (82) 124/79 (94) Pulse Ox 96 96 95 97 06/22/21 06/22/21 06/22/21 06/22/21 09:46 09:55 10:00 10:05 Pulse 87 89 88 87 Resp 23 24 22 B/P (MAP) 144/77 (99) 134/80 (98) Pulse Ox 96 95 95 95 06/22/21 06/22/21 06/22/21 06/22/21 10:15 10:20 10:30 10:35 Pulse 81 77 86 87 Resp 22 20 22 20 B/P (MAP) 115/73 (87) 120/67 (84) Pulse Ox 96 94 96 93 06/22/21 06/22/21 06/22/21 06/22/21 10:45 10:50 10:55 11:00 Pulse 75 83 77 80 Resp 26 21 20 B/P (MAP) 108/69 (82) 111/73 (86) Pulse Ox 95 95 95 93 06/22/21 06/22/21 06/22/21 06/22/21 11:10 11:13 11:15 11:25 Pulse 78 97 77 Resp 16 25 21 B/P (MAP) 120/59 (79) Pulse Ox 93 92 93 O2 Delivery Room Air 06/22/21 06/22/21 06/22/2106/22/21 11:30 12:06 12:10 12:15 Pulse 79 82 82 86 Resp 18 14 B/P (MAP) 111/67 (82) 114/75 (88) 117/72 (87) Pulse Ox 92 96 95 96 06/22/21 06/22/21 06/22/21 06/22/21 12:20 12:30 12:35 12:45 Pulse 83 84 88 87 Resp 27 B/P (MAP) 101/66 (78) 109/68 (82) Pulse Ox 96 97 95 94 06/22/21 06/22/21 06/22/21 06/22/21 12:50 13:00 13:05 13:15 Pulse 81 79 85 84 Resp 27 B/P (MAP) 101/74 (83) 114/72 (86) Pulse Ox 95 94 95 97 06/22/21 06/22/21 06/22/21 06/22/21 13:20 13:25 13:30 13:40 Pulse 84 82 76 74 Resp 17 20 B/P (MAP) 114/73 (87) Pulse Ox 96 96 97 94 06/22/21 06/22/21 06/22/21 06/22/21 13:45 13:55 14:00 14:10 Pulse 82 83 77 74 Resp 17 22 20 B/P (MAP) 98/47 (64) 110/68 (82) 132/64 (86) Pulse Ox 95 95 94 92 06/22/21 06/22/21 06/22/21 06/22/21 14:15 14:25 14:30 14:40 Pulse 73 72 69 69 Resp 20 20 20 B/P (MAP) 100/64 (76) 102/59 (73) Pulse Ox 93 94 92 93 06/22/21 06/22/21 06/22/21 06/22/21 14:45 14:55 15:00 16:15 Temp 97.9 Pulse 70 83 84 76 Resp 21 18 B/P (MAP) 118/62 (80) 109/63 (78) 115/64 (81) Pulse Ox 92 94 94 95 06/22/21 20:14 Temp 98.2 Pulse 98 Resp 18 B/P (MAP) 117/75 (89) O2 Delivery Room Air O2 Flow Rate 0.00 Intake and Output 06/22/21 07:00 Output Total 2750 ml Balance -2750 ml General: Alert, Oriented X3 HEENT: Atraumatic, PERRLA, EOMI Neck: Supple, No JVD, No thyromegaly Lungs: Clear to auscultation Heart: Regular rate, Normal S1, Normal S2 Abdomen: Normal bowel sounds Extremities: No clubbing, No cyanosis, No edema Skin: No rashes Neuro: Strength at 5/5 X4 ext All Results(Lab/Rad) Laboratory Tests Test 06/22/21 04:38 06/22/21 05:03 White Blood Count 9.2 10^3/uL Red Blood Count 4.38 10^6/uL Hemoglobin 14.5 g/dL Hematocrit 40.6 % Mean Corpuscular Volume 92.7 fL Mean Corpuscular Hemoglobin 33.1 pg Mean Corpuscular Hemoglobin Concent 35.7 g/dL Red Cell Distribution Width 13.5 % Platelet Count 178 10^3/uL Mean Platelet Volume 8.6 fL Neutrophils (%) (Auto) 94.2 % Lymphocytes (%) (Auto) 4.5 % Monocytes (%) (Auto) 1.0 % Neutrophils # (Auto) 8.7 10^3/uL Lymphocytes # (Auto) 0.42 10^3/uL1 Monocytes # (Auto) 0.1 10^3/uL Absolute Immature Granulocyte (auto 0.01 10^3 u/L Absolute Eosinophils (auto) 0.0 10^3/uL Immature Granulocytes % 0.10 % Eosinophils % 0.1 % Basophils % 0.2 % Basophils # 0.0 10^3/uL Sodium Level 142 mmol/L Potassium Level 3.5 mmol/L Chloride Level 107.0 mmol/L Carbon Dioxide Level 20.5 mmol/L Anion Gap 18.0 Blood Urea Nitrogen 11 mg/dL Creatinine 1.09 mg/dL Estimated GFR () 81.2 Est GFR (CKD-EPI)(Non-Afr Chilean) 67.1 BUN/Creatinine Ratio 10.0 Glucose Level 130 mg/dL Calcium Level 8.3 mg/dL Total Bilirubin 0.7 mg/dL Aspartate Amino Transf (AST/SGOT) 41 U/L Alanine Aminotransferase (ALT/SGPT) 25 U/L Alkaline Phosphatase 56 U/L Total Protein 6.8 g/dL Albumin 3.7 g/dL Globulin 3.1 Albumin/Globulin Ratio 1.193 Triglycerides Level 75 mg/dL Cholesterol Level 177 mg/dL LDL Cholesterol, Calculated 115.0 VLDL Cholesterol, Calculated 15.0 HDL Cholesterol 47 mg/dL Cholesterol Ratio (LDL/HDL) 2.4 Cholesterol/HDL Ratio 3.873536 Differential Total Cells Counted 100 #CELLS Segmented Neutrophils 94 % Band Neutrophils 1 % Lymphocytes 4 % Monocytes 1 % Platelet Estimate ADEQUATE Platelet Morphology NORMAL Blood Morphology Comment NORMAL MORPHOLOGY Current Medications Medications (Trade) Dose Ordered Sig/Marielos Route PRN Reason Start Time Stop Time Status Last Admin Dose Admin Aspirin (Aspirin) 325 mg DAILY PRN PO CHEST PAIN 06/21/21 14:30 06/22/21 02:27 DC 06/21/21 14:37 Nitroglycerin (Nitrostat) 0.4 mg STK-MED ONCE SL 06/21/21 14:34 06/21/21 14:34 DC Aspirin (Aspirin) 325 mg STK-MED ONCE .ROUTE 06/21/21 14:34 06/21/21 14:35 DC Nitroglycerin (Nitrostat) 0.4 mg STAT STAT SL 06/21/21 14:34 06/21/21 14:37 DC 06/21/21 14:38 Heparin Sodium/ Dextrose 500 ml @ 0 mls/hr TITRATE IV 06/21/21 15:30 06/22/21 02:27 DC 06/21/21 15:46 Heparin Sodium/ Dextrose 500 ml @ ud STK-MED ONCE IV 06/21/21 15:33 06/21/21 15:33 DC Heparin Sodium (Porcine) (Heparin) 5,000 unit STK-MED ONCE .ROUTE 06/21/21 15:33 06/21/21 15:33 DC Heparin Sodium (Beef Lung) (Heparin 500 Unit/5 ml (100/ ml)) 5,000 unit STAT STAT IV 06/21/21 15:44 06/21/21 15:46 DC 06/21/21 15:46 Clopidogrel Bisulfate (Plavix) 75 mg DAILY PO 06/21/21 17:30 06/21/21 18:02 DC Metoprolol Succinate (Toprol Xl) 12.5 mg DAILY PO 06/21/21 17:30 06/22/21 02:27 DC 06/21/21 17:30 Rosuvastatin Calcium (Crestor) 20 mg HS PO 06/21/21 21:00 06/22/21 02:27 DC 06/21/21 21:55 Heparin Sodium/ Sodium Chloride 1,500 ml @ ud STK-MED ONCE IV 06/21/21 22:49 06/21/21 22:50 DC Heparin Sodium (Porcine) (Heparin) 5,000 unit STK-MED ONCE .ROUTE 06/21/21 22:49 06/21/21 22:50 DC Fentanyl Citrate (Sublimaze) 50 mcg STK-MED ONCE .ROUTE 06/21/21 22:50 06/21/21 22:50 DC Lidocaine HCl (Xylocaine) 20 mg STK-MED ONCE .ROUTE 06/21/21 22:50 06/21/21 22:51 DC Heparin Sodium/ Sodium Chloride 500 ml @ ud STK-MED ONCE IV 06/22/21 00:53 06/22/21 00:53 DC Lorazepam (Ativan) 2 mg STK-MED ONCE .ROUTE 06/22/21 01:03 06/22/21 01:04 DC Clopidogrel Bisulfate (Plavix) 300 mg STK-MED ONCE .ROUTE 06/22/21 01:15 06/22/21 01:15 DC Aspirin (Aspirin) 325 mg STK-MED ONCE .ROUTE 06/22/21 01:15 06/22/21 01:16 DC Hydralazine HCl (Apresoline) 20 mg STK-MED ONCE .ROUTE 06/22/21 01:20 06/22/21 01:20 DC Cefazolin Sodium (Ancef) 1 gm STK-MED ONCE .ROUTE 06/22/21 01:26 06/22/21 01:27 DC Methylprednisolone Sodium Succinate (Solu-Medrol) 125 mg STK-MED ONCE .ROUTE 06/22/21 01:32 06/22/21 01:32 DC Diphenhydramine HCl (Benadryl) 50 mg STK-MED ONCE .ROUTE 06/22/21 01:32 06/22/21 01:32 DC Sodium Chloride 1,000 ml @ ud STK-MED ONCE .ROUTE 06/22/21 02:22 06/22/21 02:22 DC Aspirin (Aspirin Ec) 81 mg DAILY PO 06/22/21 09:00 07/22/21 08:59 06/22/21 08:49 Clopidogrel Bisulfate (Plavix) 75 mg DAILY PO 06/22/21 09:00 07/22/21 08:59 06/22/21 08:49 Atorvastatin Calcium (Lipitor) 40 mg HS PO 06/22/21 21:00 07/22/21 20:59 Carvedilol (Coreg) 3.125 mg BID PO 06/22/21 21:00 07/22/21 20:59 Sodium Chloride 1,000 ml @ 100 mls/hr OT ONCE IV 06/22/21 02:30 06/22/21 12:29 DC 06/22/21 02:30 Acetaminophen/ Hydrocodone Bitart ([place] 5mg) 1 ea Q4HR PRN PO PAIN 4 - 6 06/22/21 02:30 07/22/21 02:29 06/22/21 03:25 Ondansetron HCl (Zofran) 4 mg Q4H PRN IV NAUSEA / VOMITING 06/22/21 02:30 07/22/21 02:29 Potassium Bicarbonate (Effer-K 10 Meq Tablet Eff) 30 meq OT PO 06/22/21 15:00 07/22/21 14:59 Assessment/Plan Assessment/Plan Assessment/Plan 1. Acute non-ST elevation myocardial infarction. 2. History of rheumatoid arthritis. 3. Lymphocytic leukemia. Plan [facility] yesterday: 1. Severe stenosis (95%) of the mid left anterior descending artery, status post successful percutaneous coronary intervention with a Resolute [place] 3.5 x 22 mm drug-eluting stent. 2. Percutaneous transluminal coronary angioplasty of the left anterior descending artery with a [place] 2.0 x 12 mm compliant balloon. 3. Selective coronary angiography. 4. Left ventriculography. 5. Hemostasis established using a 6-Pashto MynxGrip. Continue DAPT/Statin Continue BB LVEF 55% on 2D echo Monitor on Tele Monitor BP/HR No further cardiac w/up necessary at this time Stable for d/c from a cardiac standpoint with outpt follow up with his coater helper in 1-2 weeks Will sign off ABBY ESTRADA DO Jun 22, 2021 21:13
[2021-06-22] MEDS: COREG PO SCH (21:30)
[2021-06-23 00:55] VITALS: BP 119/78
[2021-06-23 04:40] VITALS: BP 108/70
[2021-06-23 07:23] VITALS: BP 106/71
[2021-06-23] MEDS: COREG PO SCH (09:07)
[2021-06-23] MEDS: ASPIRIN EC PO SCH (09:07)
[2021-06-23] MEDS: PLAVIX PO SCH (09:07)
[2021-06-23] MEDS ORDERED: ATOR40TA PO (09:21)
[2021-06-23] MEDS ORDERED: CLOP75TA PO (09:21)
[2021-06-23] MEDS ORDERED: ASPI-929 PO (09:21)
[2021-06-23] MEDS ORDERED: CARV3.122 PO (09:21)
--- NOTE | 2021-06-23 09:24 | PRM.DC ---
Discharge Summary Date of Discharge: Jun 23, 2021 Time of Request to Discharge: 09:24 Reason for Visit: Chest pain Hospital Course Mr. Parks is a 70 y/o man with previous history of rheumatoid arthritis large granulocyte lymphocytic leukemia presenting with chest pain. He was moving his parents house furniture's and suddenly developed mid chest pressure-like symptoms but denies any associated nausea or vomiting dizziness lightheadedness or palpitations. As the symptom was disturbing he decided to come to the ER in the ER patient was found to have elevated troponin and ST depressions. Patient was admitted to the ICU and cardiology was consutled for an NSTEMI. 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 He was started on aspirin, plavix, statin and beta alissa for CAD management. ACEI has not been added yet due to lower blood pressure. He was then monitored for 24 hour with no new chest pain. He was counseled on his new medications and told to follow up with a coke burner in 1- 2 weeks when he is back in [facility]. Patient was discharged home and counseled to resume activity slowly with no heavy lifting. Patient History: Patient reports no known family medical history. Exam/Vitals Vital Sign - Last 24 Hours 06/22/21 06/22/21 06/22/21 06/22/21 11:00 11:10 11:13 11:15 Pulse 80 78 97 Resp 20 16 25 B/P (MAP) 111/73 (86) 120/59 (79) Pulse Ox 93 93 92 O2 Delivery Room Air 06/22/21 06/22/21 06/22/21 06/22/21 11:25 11:30 12:06 12:10 Pulse 77 79 82 82 Resp 18 B/P (MAP) 111/67 (82) 114/75 (88) Pulse Ox 93 92 96 95 06/22/21 06/22/21 06/22/21 06/22/21 12:15 12:20 12:30 12:35 Pulse 86 83 84 88 Resp B/P (MAP) 117/72 (87) 101/66 (78) Pulse Ox 96 96 97 95 06/22/21 06/22/21 06/22/21 06/22/21 12:45 12:50 13:00 13:05 Pulse 87 81 79 85 Resp 22 25 B/P (MAP) 109/68 (82) 101/74 (83) Pulse Ox 94 95 94 95 06/22/21 06/22/21 06/22/21 06/22/21 13:15 13:20 13:25 13:30 Pulse 84 84 82 76 Resp 27 25 28 17 B/P (MAP) 114/72 (86) 114/73 (87) Pulse Ox 97 96 96 97 06/22/21 06/22/21 06/22/21 06/22/21 13:40 13:45 13:55 14:00 Pulse 74 82 83 77 Resp 20 24 17 22 B/P (MAP) 98/47 (64) 110/68 (82) 132/64 (86) Pulse Ox 94 95 95 94 06/22/21 06/22/21 06/22/21 06/22/21 14:10 14:15 14:25 14:30 Pulse 74 73 72 69 Resp 20 21 20 20 B/P (MAP) 100/64 (76) 102/59 (73) Pulse Ox 92 93 94 92 06/22/21 06/22/21 06/22/21 06/22/21 14:40 14:45 14:55 15:00 Pulse 69 70 83 84 Resp 21 B/P (MAP) 118/62 (80) 109/63 (78) Pulse Ox 93 92 94 94 06/22/21 06/22/21 06/22/21 06/22/21 16:15 20:14 21:30 22:51 Temp 97.9 98.2 Pulse 76 98 98 Resp 18 18 B/P (MAP) 115/64 (81) 117/75 (89) 117/75 Pulse Ox 95 O2 Delivery Room Air Room Air O2 Flow Rate 0.00 0.00 06/23/21 06/23/21 06/23/21 06/23/21 00:55 04:40 07:23 09:07 Temp 98.0 98.4 97.7 Pulse 67 63 66 66 Resp 18 18 17 B/P (MAP) 119/78 (92) 108/70 (83) 106/71 (83) 106/71 Pulse Ox 97 92 92 O2 Delivery Room Air Room Air O2 Flow Rate 0.00 0.00 Intake and Output 06/23/21 07:00 Output Total 1100 ml Balance -1100 ml General: Alert, Oriented X3, Cooperative HEENT: Atraumatic, PERRLA Neck: Supple, No JVD Lungs: Clear to auscultation, Normal air movement Heart: Regular rate, No murmurs Abdomen: Normal bowel sounds, No tenderness Extremities: No clubbing, No cyanosis, No edema Skin: No rashes, No breakdown Psych/Mental Status: Mental status NL, Mood NL Scheduled Aspirin (Aspirin Ec), 81 MG PO DAILY Atorvastatin 40MG (Lipitor 40MG), 40 MG PO HS Carvedilol (Carvedilol), 3.125 MG PO BID Clopidogrel Bisulfate (Clopidogrel), 75 MG PO DAILY Folic Acid (Folic Acid), 1 CAP PO QD, (Reported) Meloxicam (Mobic), 1 TAB PO DAILY, (Reported) Sepsis Evaluation @ Discharge 06/23/21 07:56 Course Sepsis Screening Results: Posi: NEGATIVE Sepsis Qualifier/Stage: NO DEFINITE RISK Duration or Total Time Spent w: 20 Vitals & review Data Vital Sign - Last 24 Hours 06/22/21 06/22/21 06/22/21 06/22/21 09:25 09:30 09:40 09:46 Pulse 86 87 101 87 Resp 13 23 31 25 B/P (MAP) 124/79 (94) 144/77 (99) Pulse Ox 96 95 97 96 06/22/21 06/22/21 06/22/21 06/22/21 09:55 10:00 10:05 10:15 Pulse 89 88 87 81 Resp 22 B/P (MAP) 134/80 (98) 115/73 (87) Pulse Ox 95 95 95 96 06/22/21 06/22/21 06/22/21 06/22/21 10:20 10:30 10:35 10:45 Pulse 77 86 87 75 Resp 20 21 B/P (MAP) 120/67 (84) 108/69 (82) Pulse Ox 94 96 93 95 06/22/21 06/22/21 06/22/21 06/22/21 10:50 10:55 11:00 11:10 Pulse 83 77 80 78 Resp 26 21 20 16 B/P (MAP) 111/73 (86) Pulse Ox 95 95 93 93 8/506/22/21 06/22/21 06/22/21 11:13 11:15 11:25 11:30 Pulse 97 77 79 Resp 21 20 B/P (MAP) 120/59 (79) 111/67 (82) Pulse Ox 92 93 92 O2 Delivery Room Air 06/22/21 06/22/21 06/22/21 06/22/21 12:06 12:10 12:15 12:20 Pulse 82 82 86 83 Resp 23 18 14 25 B/P (MAP) 114/75 (88) 117/72 (87) Pulse Ox 96 95 96 96 06/22/21 06/22/21 06/22/21 06/22/21 12:30 12:35 12:45 12:50 Pulse 84 88 87 81 Resp 23 B/P (MAP) 101/66 (78) 109/68 (82) Pulse Ox 97 95 94 95 06/22/21 06/22/21 06/22/21 06/22/21 13:00 13:05 13:15 13:20 Pulse 79 85 84 84 Resp 25 B/P (MAP) 101/74 (83) 114/72 (86) Pulse Ox 94 95 97 96 06/22/21 06/22/21 06/22/21 06/22/21 13:25 13:30 13:40 13:45 Pulse 82 76 74 82 Resp 28 17 20 24 B/P (MAP) 114/73 (87) 98/47 (64) Pulse Ox 96 97 94 95 06/22/21 06/22/21 06/22/21 06/22/21 13:55 14:00 14:10 14:15 Pulse 83 77 74 73 Resp 17 20 21 B/P (MAP) 110/68 (82) 132/64 (86) 100/64 (76) Pulse Ox 95 94 92 93 06/22/21 06/22/21 06/22/21 06/22/21 14:25 14:30 14:40 14:45 Pulse 72 69 69 70 Resp 20 20 20 20 B/P (MAP) 102/59 (73) 118/62 (80) Pulse Ox 94 92 93 92 06/22/21 06/22/21 06/22/21 06/22/21 14:55 15:00 16:15 20:14 Temp 97.9 98.2 Pulse 83 84 76 98 Resp 22 21 18 18 B/P (MAP) 109/63 (78) 115/64 (81) 117/75 (89) Pulse Ox 94 94 95 O2 Delivery Room Air O2 Flow Rate 0.00 06/22/21 06/22/21 06/23/21 06/23/21 21:30 22:51 00:55 04:40 Temp 98.0 98.4 Pulse 98 67 63 Resp 18 18 B/P (MAP) 117/75 119/78 (92) 108/70 (83) Pulse Ox 97 92 O2 Delivery Room Air Room Air Room Air O2 Flow Rate 0.00 0.00 0.00 06/23/21 06/23/21 07:23 09:07 Temp 97.7 Pulse 66 66 Resp 17 B/P (MAP) 106/71 (83) 106/71 Pulse Ox 92 Intake and Output 06/23/21 07:00 Output Total 1100 ml Balance -1100 ml Laboratory Tests Test 06/21/21 14:23 06/21/21 20:01 06/22/21 04:38 06/22/21 05:03 White Blood Count 7.5 10^3/uL 9.2 10^3/uL Red Blood Count 4.62 10^6/uL 4.38 10^6/uL Hemoglobin 15.1 g/dL 14.5 g/dL Hematocrit 43.2 % 40.6 % Mean Corpuscular Volume 93.5 fL 92.7 fL Mean Corpuscular Hemoglobin 32.7 pg 33.1 pg Mean Corpuscular Hemoglobin Concent 35.0 g/dL 35.7 g/dL Red Cell Distribution Width 13.4 % 13.5 % Platelet Count 186 10^3/uL 178 10^3/uL Mean Platelet Volume 8.8 fL 8.6 fL Neutrophils (%) (Auto) 78.0 % 94.2 % Lymphocytes (%) (Auto) 14.8 % 4.5 % Monocytes (%) (Auto) 4.9 % 1.0 % Neutrophils # (Auto) 5.8 10^3/uL 8.7 10^3/uL Lymphocytes # (Auto) 1.11 10^3/uL1 0.42 10^3/uL1 Monocytes # (Auto) 0.4 10^3/uL 0.1 10^3/uL Absolute Immature Granulocyte (auto 0.01 10^3 u/L 0.01 10^3 u/L Absolute Eosinophils (auto) 0.1 10^3/uL 0.0 10^3/uL Immature Granulocytes % 0.10 % 0.10 % Eosinophils % 1.7 % 0.1 % Basophils % 0.5 % 0.2 % Basophils # 0.0 10^3/uL 0.0 10^3/uL Prothrombin Time 11.3 SEC Prothrombin Time INR (Non-Therap) 1.1 Activated Partial Thromboplast Time 23.0 SEC 43.8 SEC Sodium Level 139 mmol/L 142 mmol/L Potassium Level 3.6 mmol/L 3.5 mmol/L Chloride Level 106.0 mmol/L 107.0 mmol/L Carbon Dioxide Level 25.1 mmol/L 20.5 mmol/L Anion Gap 11.5 18.0 Blood Urea Nitrogen 14 mg/dL 11 mg/dL Creatinine 1.25 mg/dL 1.09 mg/dL Estimated GFR () 69.3 81.2 Est GFR (CKD-EPI)(Non-Afr Malagasy) 57.3 67.1 BUN/Creatinine Ratio 11.0 10.0 Glucose Level 128 mg/dL 130 mg/dL Calcium Level 9.0 mg/dL 8.3 mg/dL Total Bilirubin 0.4 mg/dL 0.7 mg/dL Aspartate Amino Transf (AST/SGOT) 31 U/L 41 U/L Alanine Aminotransferase (ALT/SGPT) 32 U/L 25 U/L Alkaline Phosphatase 60 U/L 56 U/L Troponin I 0.43 ng/mL 1.53 ng/mL Total Protein 7.5 g/dL 6.8 g/dL Albumin 4.1 g/dL 3.7 g/dL Globulin 3.4 3.1 Albumin/Globulin Ratio 1.205 1.193 Triglycerides Level 75 mg/dL Cholesterol Level 177 mg/dL LDL Cholesterol, Calculated 115.0 VLDL Cholesterol, Calculated 15.0 HDL Cholesterol 47 mg/dL Cholesterol Ratio (LDL/HDL) 2.4 Cholesterol/HDL Ratio [id number] Differential Total Cells Counted 100 #CELLS Segmented Neutrophils 94 % Band Neutrophils 1 % Lymphocytes 4 % Monocytes 1 % Platelet Estimate ADEQUATE Platelet Morphology NORMAL Blood Morphology Comment NORMAL MORPHOLOGY Current Medications Medications (Trade) Dose Ordered Sig/Marielos PRN Reason Start Time Stop Time Status Last Admin Acetaminophen/ Hydrocodone Bitart ([place] 5mg) 1 ea Q4HR PRN PAIN 4 - 6 06/22/21 02:30 07/22/21 02:29 06/22/21 03:25 Aspirin (Aspirin Ec) 81 mg DAILY 06/22/21 09:00 07/22/21 08:59 06/23/21 09:07 Atorvastatin Calcium (Lipitor) 40 mg HS 06/22/21 21:00 07/22/21 20:59 06/22/21 21:30 Carvedilol (Coreg) 3.125 mg BID 06/22/21 21:00 07/22/21 20:59 06/23/21 09:07 Clopidogrel Bisulfate (Plavix) 75 mg DAILY 06/22/21 09:00 07/22/21 08:59 06/23/21 09:07 Ondansetron HCl (Zofran) 4 mg Q4H PRN NAUSEA / VOMITING 06/22/21 02:30 07/22/21 02:29 Potassium Bicarbonate (Effer-K 10 Meq Tablet Eff) 30 meq OT 06/22/21 15:00 07/22/21 14:59 LEVEL 1 SEPSIS INFECTION CRITE: Recent Invasive Procedure O2 Sat by Pulse Oximetry: 92 Oxygen Flow Rate: 0.00 Plan Problems: (1) NSTEMI (non-ST elevated myocardial infarction) ICD Code: I21.4 - Non-ST elevation (NSTEMI) myocardial infarction SNOMED: 43092282 (2) Rheumatoid arthritis ICD Code: M06.9 - Rheumatoid arthritis, unspecified SNOMED: 40771248 (3) Leukemia ICD Code: C95.90 - Leukemia, unspecified not having achieved remission SNOMED: 03490061 (4) Acute coronary syndrome with high troponin Status: Acute ICD Code: I24.9 - Acute ischemic heart disease, unspecified SNOMED: 651134830, [id number] Discharge Date: Jun 23, 2021 Discharge Disposition: ROYAL Morris MD Jun 23, 2021 09:24
[2021-06-23 09:31] LABS: BASOPHIL % 0.5 % (0.0-0.2); EOSINOPHIL # 0.1 10^3/uL (0.0-0.2); EOSINOPHIL % 0.9 % (0.0-5.0); LYMPHOCYTES # 0.87 10^3/uL1 (1.0-4.8); LYMPHOCYTES % 11.4 % (24.0-44.0); MEAN CORP HGB 33.2 pg (26-34); MONOCYTES # 0.5 10^3/uL (0.3-0.8); MONOCYTES % 6.5 % (5.0-12.0); NEUTROPHIL # 6.2 10^3/uL (1.8-7.7); NEUTROPHILS % 80.6 % (41.0-85.0); PLATELET COUNT 168 10^3/uL (150-400); RED CELL DISTRIBUTION WIDTH 13.8 % (11.5-14.5)
[2021-06-23 09:41] LABS: CARBON DIOXIDE 26.1 mmol/L (20.0-32)
[2021-06-23 09:42] LABS: CALCIUM 8.2 mg/dL (8.4-10.5)
--- NOTE | 2021-06-23 10:19 | NUR ---
DISCHARGE PLANNING: CM/SS VISITED WITH PT AND REGARDING DISCHARGE PLANNING. PT LIVES HOME WITH IN [place], [place]. PT IS INDEPENDENT ON ADLS AND DOES NOT REQUIRE ANY DME TO ASSIST WITH AMBULATION. PT'S PCP IS DR. CHAIM TERRELL AT [facility]. PT ASKED THIS WORKER TO FAX CLINICAL FOR REVIEW. PT DENIED NEEDING ADDITIONAL RESOURCES AT THIS TIME. GOAL IS TO RETURN HOME TO [place] WITH TO ROUTINE SELF CARE. NO FURTHER CM/SS NEEDS NOTED OR IDENTIFIED AT THIS TIME. CM/SS TO CONTINUE TO FOLLOW.
--- NOTE | 2021-06-23 11:30 | NUR ---
PT DISCHARGED AMBULATORY IN NO APPARENT ACUTE DISTRESS. PT STATES PAIN LEVEL 0 ON NUMERICAL PAIN SCALE 0-10. PT LEFT IN PERSONAL VEHICLE WITH SPOUSE. WRITTEN DISCHARGE INSTRUCTIONS PROVIDED TO PT, EDUCATION SESSION PROVIDED BY JOSE AGUERO. RELINQUISHED CARE.
[2021-06-23 11:31] VITALS: BP 106/71
[2021-06-23 11:45] VITALS: BP 135/84
== END 2021-06-23 11:30 | disposition home or self-care (01) | DRG 247 ==
LOC: ER 14:08 → ICU 16:16 → MS 06-22 16:32 → EDPENDDISDT 06-23 11:32 → EDPENDDISTM 06-23 11:32
PROVIDERS: ADMIT Internal Medicine; ATTEND Internal Medicine
PROC: 0270346 Dilation of Coronary Artery, One Artery, Bifurcation, with Drug-eluting Intraluminal Device, Percutaneous Approach (ICD-10-PCS; principal; 2021-06-22)
PROC: B2151ZZ Fluoroscopy of Left Heart using Low Osmolar Contrast (ICD-10-PCS; 2021-06-22)
PROC: 4A023N7 Measurement of Cardiac Sampling and Pressure, Left Heart, Percutaneous Approach (ICD-10-PCS; 2021-06-22)
PROC: B2111ZZ Fluoroscopy of Multiple Coronary Arteries using Low Osmolar Contrast (ICD-10-PCS; 2021-06-22)
DX: I21.4 Non-ST elevation (NSTEMI) myocardial infarction (principal); C91.90 Lymphoid leukemia, unspecified not having achieved remission; I24.9 Acute ischemic heart disease, unspecified; I25.10 Atherosclerotic heart disease of native coronary artery without angina pectoris; M06.9 Rheumatoid arthritis, unspecified; Z85.46 Personal history of malignant neoplasm of prostate; Z85.828 Personal history of other malignant neoplasm of skin; Z87.891 Personal history of nicotine dependence; Z90.49 Acquired absence of other specified parts of digestive tract
CPT/HCPCS: 36415; 71045; 80053; 80061; 84484; 85025; 85610; 85730; 93005; 93306; 93458; 99152; 99153; 99291; C1725; C1769; C1874; C1887; C1894; C9600; G0378; J0360; J0690; J1200; J1644; J2060; J2250; J2930; J3010; J7030; Q9967